=== PATIENT | female | born 1930 | race Caucasian/White ===

== ENCOUNTER 2017-11-20 17:00 | Emergency (ER) | payer OTHER ==
[~2017-11-20] VITALS: Ht 152.4 cm; Wt 72.6 kg
[2017-11-20 17:00] VITALS: BP_SYST 159
--- NOTE | 2017-11-20 17:00 | NUR ---
1659 - 12 lead EKG done in bed [address] Tapia for interpretation.
--- NOTE | 2017-11-20 17:05 | NUR ---
Patient to ER bed 02 to gown for evaluation. Side rails up.
--- NOTE | 2017-11-20 17:12 | NUR ---
ER at bedside examining patient.
--- NOTE | 2017-11-20 17:14 | NUR ---
Pt presents to ER c/o cough, congestion since Thursday. Pt is accompanied by her caregiver; caregiver states that she gave pt Nyquil earlier today. Pt denies chest pain, denies nausea or vomiting. Pt does not appear to be in acute respiratory distress, speaking full sentences, AOX4.
[2017-11-20 17:42] LABS: EOSINOPHILS # (AUTO) 0.1 K/uL (0.0-0.4); HEMOGLOBIN 10.7 g/dL (12.0-16.0); MEAN CORPUSCULAR HEMOGLOBIN 29 pg (27-31); MEAN CORPUSCULAR VOLUME 87 fL (79.0-98.0)
[2017-11-20 17:45] LABS: BASOPHILS % (AUTO) 0.3 % (0.0-2.0); EOSINOPHILS % (AUTO) 0.7 % (0.0-4.0); HEMATOCRIT 31.8 % (36-48); LYMPHOCYTES # (AUTO) 0.7 K/uL (1.0-5.5); LYMPHOCYTES % (AUTO) 5.4 % (20.5-51.5); MEAN CORPUSCULAR HGB CONC 34 % (32-36); MONOCYTES # (AUTO) 1.6 K/uL (0.0-1.0); MONOCYTES % (AUTO) 11.8 % (1.7-9.3); NEUTROPHILS # (AUTO) 11.1 K/uL (1.8-7.7); NEUTROPHILS % (AUTO) 81.8 % (40.0-70.0); PLATELET COUNT (AUTO) 155 K/uL (130-430); RED BLOOD CELL COUNT(AUTO) 3.67 MIL/uL (4.2-6.2); RED CELL DISTRIBUTION WIDTH 13.1 % (9.0-15.0); WHITE BLOOD COUNT (AUTO) 13.5 K/uL (4.8-10.8)
[2017-11-20 17:54] LABS: ANION GAP 9 (5-15); CALCIUM 8.7 mg/dL (8.4-11.0); CHLORIDE 100 mmol/L (98-107); CREATININE 0.86 mg/dL (0.55-1.30); GLUCOSE 158 mg/dL (70-99); POTASSIUM 3.9 mmol/L (3.5-5.1); SODIUM SERUM 134 mmol/L (136-145); UREA NITROGEN, BLOOD 15 mg/dL (8-21)
[2017-11-20 17:57] LABS: PROTHROMBIN TIME 10.3 SECS (9.5-12.5)
[2017-11-20 17:58] LABS: ALANINE AMINOTRANSFERASE 18 U/L (12-78); ASPARTATE AMINOTRANSFERASE 11 U/L (10-37); TOTAL BILIRUBIN 0.7 mg/dL (0.0-1.0)
[2017-11-20] MEDS ORDERED: LEVOFLOXACIN 500 MG TABLET PO ONE (19:00)
[2017-11-20 19:29] VITALS: BP_SYST 125
--- NOTE | 2017-11-20 19:29 | NUR ---
Patient given written and verbal discharge instructions and verbalizes understanding. ER MD discussed with patient the results and treatment provided. Patient in stable condition. ID arm band removed. Rx of levaquin, sudafed, and albuterol given. Patient educated on pain management and to follow up with PMD. Pain Scale 0/10 . Opportunity for questions provided and answered. Medication side effect fact sheet provided.
== END 2017-11-20 19:29 | disposition home or self-care (01) ==
LOC: SED 17:00
DX: J18.9 Pneumonia, unspecified organism (principal); F03.90 Unspecified dementia, unspecified severity, without behavioral disturbance, psychotic disturbance, mood disturbance, and anxiety; Z86.73 Personal history of transient ischemic attack (TIA), and cerebral infarction without residual deficits
CPT/HCPCS: 36415; 71045; 80053; 82550-TC; 83880; 84484; 85025; 85610-TC; 85730-TC; 93005; 99285